=== PATIENT | female | born 1985 | race Caucasian/White ===

== ENCOUNTER 2018-08-17 10:12 | Inpatient (IN) ==
[2018-08-17] MEDS ORDERED: D5W 1,000 ML IV PRN (17:37)
[2018-08-17] MEDS ORDERED: NICODERM PATCH TD PRN (17:37)
[2018-08-17] MEDS ORDERED: TUBERSOL ID ONE (17:37)
[2018-08-17] MEDS ORDERED: PHENOBARBITAL IV PRN (17:37)
[2018-08-17] MEDS ORDERED: MAALOX PLUS LIQUID PO PRN (17:37)
[2018-08-17] MEDS ORDERED: SENOKOT PO PRN (17:37)
[2018-08-17] MEDS ORDERED: NICOTINE GUM BUCCAL PRN (17:37)
[2018-08-17] MEDS ORDERED: IMODIUM PO PRN ×2 (17:37)
[2018-08-17] MEDS ORDERED: ZOFRAN IM PRN (17:37)
[2018-08-17] MEDS ORDERED: SEROQUEL PO PRN (17:37)
[2018-08-17] MEDS ORDERED: DESYREL PO PRN (17:37)
[2018-08-17] MEDS ORDERED: DULCOLAX PR PRN (17:37)
[2018-08-17] MEDS ORDERED: MOTRIN PO PRN (17:37)
[2018-08-17] MEDS ORDERED: SALINE LOCK IV FLUID XX ONE (17:57)
[2018-08-17 18:23] LABS: HEMATOCRIT 36.8 % (37.0-47.0); HEMOGLOBIN 12.7 g/dL (12.0-16.0); MCH 34.6 PG (27-31); MCHC 34.5 g/dL (33-37); MCV 100.3 FL (81-99); MPV 8.5 FL (7.4-10.4); RBC 3.67 XMIL (4.2-5.4); WBC 6.85 X1000 (4.8-10.8)
[2018-08-17] MEDS ORDERED: M.V.I.-12 10 ML, FOLIC ACID 1 MG, MAGNESIUM SULFATE 1 GM, THIAMINE 100 MG in NS 1,000 ML IV ONE (18:30)
[2018-08-17 18:42] LABS: AGAP 16; ALBUMIN 3.6 g/dL (3.5-5.0); ALKALINE PHOSPHATASE 341 U/L (32-104); AMYLASE 124 U/L (20-200); BUN 7 mg/dL (8-22); CALCIUM 8.3 mg/dL (8.8-10.2); CHLORIDE 105 mmol/L (98-107); COSMO 295; CREATININE 0.6 mg/dL (0.5-0.9); ESTIMATED GFR > 60; GLUCOSE 141 mg/dL (70-104); GOT 496 U/L (10-30); GPT 130 U/L (10-36); LIPASE 47 U/L (13-60); POTASSIUM 3.5 mmol/L (3.5-5.1); SODIUM 148 mmol/L (136-145); TCO2 27 mmol/L (25-35); TOTAL PROTEIN 6.8 g/dL (6.3-8.3)
[2018-08-17] MEDS ORDERED: ATIVAN PO ONE (19:04)
[2018-08-17 19:16] LABS: UR AMPHETAMINES QUAL NONE DETECTED (NONE DETECT); UR BARBITUATES QUAL NONE DETECTED (NONE DETECT); UR BENZODIAZEPIN QUAL PRESUMPTIVE POSITIVE (NONE DETECT); UR CANNABINOIDS QUAL PRESUMPTIVE POSITIVE (NONE DETECT); UR COCAINE QUAL PRESUMPTIVE POSITIVE (NONE DETECT); UR METHADONE QUAL NONE DETECTED (NONE DETECT); UR METHAMPHETAMINE QUAL NONE DETECTED (NONE DETECT); UR OPIATES QUAL NONE DETECTED (NONE DETECT); UR OXYCODONE QUAL NONE DETECTED (NONE DETECT); UR PCP QUAL NONE DETECTED (NONE DETECT); UR PROPOXYPHENE QUAL NONE DETECTED (NONE DETECT); UR TCA QUAL NONE DETECTED (NONE DETECT)
[2018-08-17] MEDS: LIBRIUM PO SCH ×2 (19:28→23:59)
[2018-08-17 19:37] LABS: URINE SOURCE CLEAN CATCH
[2018-08-17 19:45] LABS: BILIRUBIN URINE NEGATIVE (NEGATIVE); BLOOD URINE NEGATIVE (NEGATIVE); CLARITY SL. CLOUDY (CLEAR); COLOR YELLOW; GLUCOSE URINE NEGATIVE (NEGATIVE); KETONE URINE NEGATIVE (NEGATIVE); LEUKOCYTES URINE TRACE (NEGATIVE); NITRITE URINE NEGATIVE (NEGATIVE); PROTEIN URINE TRACE mg/dL (NEGATIVE); SP GRAVITY URINE 1.005; UROBILINOGEN URINE NORMAL
[2018-08-17] MEDS: ZOFRAN IV PRN (19:52)
[2018-08-17 19:54] LABS: URINE BACTERIA 3+ /HFP; URINE CAST NONE SEEN /LPF; URINE CRYSTAL NONE SEEN /HPF; URINE EPITHELIAL CELLS <10 /HPF (<10); URINE RBC <10 /HPF (<10); URINE WBC <10 /HPF (<10); URINE YEAST NONE SEEN /HPF
[2018-08-17] MEDS: ROBAXIN PO PRN (21:00)
[2018-08-17] MEDS: ATARAX PO PRN (21:00)
[2018-08-17] MEDS ORDERED: BUSPAR PO SCH (21:00)
[2018-08-17] MEDS: BUSPAR PO SCH (21:00)
[2018-08-17] MEDS: SEROQUEL PO SCH (21:00)
[2018-08-18] MEDS: ZOFRAN IV PRN ×2 (04:42→21:36)
[2018-08-18] MEDS: ATARAX PO PRN ×3 (04:42→21:30)
[2018-08-18] MEDS: ROBAXIN PO PRN ×3 (04:43→21:30)
[2018-08-18] MEDS: PROTONIX PO SCH (06:00)
[2018-08-18] MEDS: LIBRIUM PO SCH ×3 (06:00→17:57)
--- NOTE | 2018-08-18 08:27 | HISTORY AND PHYSICAL ---
CHIEF COMPLAINT: Nausea and vomiting. HISTORY OF PRESENT ILLNESS: The patient is a 33-year-old female who presented to [facility] secondary to nausea, vomiting, abdominal pain, tremors, and myalgias. Notes that she has been drinking heavily and she has been trying to stop. However, her symptoms have been too severe and she has to start drinking to alleviate said symptoms. SOCIAL HISTORY: The patient is single. She is on disability. She lives at home in [place]. PAST MEDICAL HISTORY: Chronic pancreatitis, likely secondary to chronic alcoholism, history of cirrhosis, depression. She has borderline personality disorder. She has had a head injury years ago, likely secondary to syncope and problems with alcoholism. MEDICATIONS: Trazodone 100 mg at bedtime, azithromycin recently for a UTI, BuSpar 15 b.i.d., Seroquel 50, cefdinir 300. ALLERGIES: No known drug allergies. REVIEW OF SYSTEMS: CIWA score was 13 secondary to nausea, vomiting, tremors, anxiety, frequent agitation, paroxysmal sweating, cold chills, unable sit still, frequent fidgeting. Denies any hematemesis, hematochezia, melena, hemoptysis. Denies dysuria currently, although recently has had a UTI. These symptoms are improving. Denies headaches or blurry vision. Denies focalized numbness, tingling, or weakness in her extremities. SUBSTANCE ABUSE HISTORY: The patient had been to [place] several years ago. She started drinking at age 27. Currently drinks a pint a day, up to a fifth of vodka a day. She did use cocaine a few years ago but has not used since. FAMILY HISTORY: Noncontributory. PHYSICAL EXAMINATION: VITAL SIGNS: Reviewed and stable. GENERAL: She is awake, alert, oriented. She is in no current respiratory distress but is somewhat ill-appearing. She is fidgety, has notable tremors. HEENT: Normocephalic. NECK: Supple. CARDIOVASCULAR: Regular rate. CHEST: Clear and nonlabored. ABDOMEN: Soft, nondistended. EXTREMITIES: Moves all extremities. NEUROLOGIC: No focal changes. SKIN: Warm and dry. No rashes. ASSESSMENT: 1. Nausea, vomiting, and abdominal pain. 2. Myalgias. 3. Tremors. 4. Paresthesias. 5. Alcohol induced cirrhosis. PLAN: We will admit the patient to the hospital and place her on high-dose Librium. Continue counseling. Treat for alcohol withdrawal. We will monitor her liver functions and electrolytes, and we will follow. cc: Azeem Moreno MD
[2018-08-18] MEDS: FOLIC ACID PO SCH (09:22)
[2018-08-18] MEDS: BUSPAR PO SCH ×2 (09:22→21:31)
[2018-08-18] MEDS: SEROQUEL PO SCH ×2 (09:22→21:31)
[2018-08-18] MEDS: THERA M PLUS PO SCH (09:22)
[2018-08-18] MEDS: VITAMIN B-1 PO SCH (09:22)
[2018-08-18] MEDS: ZOFRAN ODT PO PRN (11:17)
[2018-08-18] MEDS: DESYREL PO SCH ×2 (21:00→21:30)
[2018-08-19] MEDS: LIBRIUM PO SCH ×4 (00:13→18:03)
[2018-08-19] MEDS: ZOFRAN IV PRN ×3 (03:32→21:19)
[2018-08-19] MEDS: ATARAX PO PRN ×2 (03:32→21:18)
[2018-08-19] MEDS: ROBAXIN PO PRN (03:32)
[2018-08-19] MEDS: BENTYL PO PRN ×2 (03:33→21:18)
[2018-08-19] MEDS: PROTONIX PO SCH (07:00)
[2018-08-19] MEDS: SEROQUEL PO SCH ×2 (08:33→21:18)
[2018-08-19] MEDS: VITAMIN B-1 PO SCH (08:33)
[2018-08-19] MEDS: THERA M PLUS PO SCH (08:33)
[2018-08-19] MEDS: FOLIC ACID PO SCH (08:33)
[2018-08-19] MEDS: BUSPAR PO SCH ×2 (08:34→21:55)
[2018-08-19] MEDS: TYLENOL PO PRN (13:54)
[2018-08-19] MEDS: DESYREL PO SCH (21:18)
--- NOTE | 2018-08-20 00:57 | PROGRESS NOTE ---
DATE: 08/18/2018 SUBJECTIVE: Patient seen and examined by myself on 08/18. States that she is feeling okay, did not sleep at all. States she is still having lots of withdrawal symptoms to include muscle aches, myalgias, tremors and agitation. PHYSICAL EXAMINATION: Vital Signs: Reviewed. Temperature 99 degrees, pulse 119, respiratory 20, BP 129/96. General: Patient is awake, alert. She is currently in no respiratory distress, but she is still somewhat ill appearing. HEENT: Normocephalic. Neck: Supple. Cardiovascular: Regular rate. No murmurs. Chest: Clear, nonlabored. Abdomen: Soft, nondistended. Extremities: Moves all extremities. Neurologic: No focal changes. Skin: Warm and dry. No rashes. ASSESSMENT: 1. Nausea and vomiting. 2. Abdominal pain. 3. Myalgias. 4. Paresthesias. 5. Paroxysmal sweating. 6. Pain. 7. Tremors. 8. Myalgias. 9. Alcohol abuse withdrawal and stabilization. 10. Polysubstance abuse with positive cocaine. 11. Cirrhosis. PLAN: We will continue patient in the hospital, continue high-dose Librium taper, continue counseling. Further orders as needed. cc: Azeem Moreno MD
[2018-08-20] MEDS: LIBRIUM PO SCH ×3 (01:15→15:12)
--- NOTE | 2018-08-20 01:19 | PROGRESS NOTE ---
DATE: 08/19/2018 SUBJECTIVE: Patient notes that she is feeling much better. Still having some muscle aches. Still having some tremors, but actually slept last night. Overall, her symptoms have improved. PHYSICAL EXAMINATION: Vital Signs: Reviewed. Temperature afebrile, 97.4, pulse 86, respiratory 18, BP 111/81. General: Patient is awake, alert. Currently she is in no respiratory distress. Very pleasant to talk with. HEENT: Normocephalic. Neck: Supple. CARDIOVASCULAR: Regular rate. Chest: Clear. Abdomen: Soft. Extremities: Moves all extremities. Neurologic: No changes. ASSESSMENT: 1. Nausea and vomiting. 2. Abdominal pain. 3. Myalgias. 4. Paresthesias. 5. Tremors. 6. Alcohol abuse. 7. Cirrhosis secondary to alcoholism. 8. Drug use with cocaine. DISPOSITION: Discussed with patient that she certainly needs to change her attitudes about alcohol as well as drug use. Discussed that she has cirrhosis and all alcohol will certainly continue to worsen her cirrhosis. Discussed that she needs to avoid persons, places, situations in which she has been using and abusing in the past. We will continue Librium taper. Further orders as needed. cc: Azeem Moreno MD
[2018-08-20] MEDS: PROTONIX PO SCH (06:16)
[2018-08-20 07:16] LABS: HEMOGLOBIN 10.7 g/dL (12.0-16.0); MCH 34.5 PG (27-31); MCHC 33.4 g/dL (33-37); MCV 103.2 FL (81-99); MPV 9.5 FL (7.4-10.4); RBC 3.1 XMIL (4.2-5.4); WBC 7.48 X1000 (4.8-10.8)
[2018-08-20 07:35] LABS: AGAP 10; ALBUMIN 3.1 g/dL (3.5-5.0); ALKALINE PHOSPHATASE 299 U/L (32-104); BUN 7 mg/dL (8-22); CALCIUM 8.8 mg/dL (8.8-10.2); CHLORIDE 104 mmol/L (98-107); COSMO 279; CREATININE 0.6 mg/dL (0.5-0.9); ESTIMATED GFR > 60; GLUCOSE 99 mg/dL (70-104); GOT 185 U/L (10-30); GPT 89 U/L (10-36); MAGNESIUM 1.8 mg/dL (1.5-2.7); POTASSIUM 3.5 mmol/L (3.5-5.1); SODIUM 141 mmol/L (136-145); TCO2 26 mmol/L (25-35); TOTAL PROTEIN 5.4 g/dL (6.3-8.3)
[2018-08-20] MEDS: BUSPAR PO SCH ×2 (08:32→20:34)
[2018-08-20] MEDS: FOLIC ACID PO SCH (08:32)
[2018-08-20] MEDS: VITAMIN B-1 PO SCH (08:33)
[2018-08-20] MEDS: THERA M PLUS PO SCH (08:33)
[2018-08-20] MEDS: SEROQUEL PO SCH ×2 (08:34→20:34)
[2018-08-20] MEDS: ZOFRAN IV PRN ×3 (08:34→20:34)
[2018-08-20 19:35] LABS: AMYLASE 84 U/L (20-200); LIPASE 16 U/L (13-60)
[2018-08-20] MEDS: ROBAXIN PO PRN (20:34)
[2018-08-20] MEDS: DESYREL PO SCH (20:34)
[2018-08-20] MEDS: TYLENOL PO PRN (20:34)
[2018-08-21 00:02] LABS: AMYLASE 79 U/L (20-200); LIPASE 27 U/L (13-60)
[2018-08-21] MEDS: TYLENOL PO PRN (01:10)
[2018-08-21] MEDS: PROTONIX PO SCH (06:14)
[2018-08-21] MEDS: ZOFRAN ODT PO PRN (06:24)
[2018-08-21 07:43] VITALS: BP 108/72
[2018-08-21] MEDS: VITAMIN B-1 PO SCH (08:17)
[2018-08-21] MEDS: ATARAX PO PRN (08:17)
[2018-08-21] MEDS: SEROQUEL PO SCH (08:17)
[2018-08-21] MEDS: BUSPAR PO SCH (08:18)
[2018-08-21] MEDS: FOLIC ACID PO SCH (08:19)
[2018-08-21] MEDS: THERA M PLUS PO SCH (08:19)
[2018-08-21] MEDS ORDERED: LIBRIUM PO SCH (13:00)
--- NOTE | 2018-08-21 14:45 | PROGRESS NOTE ---
DATE: 08/20/2018 SUBJECTIVE: The patient states she is feeling okay but she is having left upper quadrant abdominal pain thinks she may have pancreatitis as she has had it before although these symptoms slightly different. Interestingly she was able eat a full meal breakfast lunch and supper. Denies any diarrhea, fevers or chills. OBJECTIVE: Vital Signs: Reviewed, temperature 97.9 degrees, pulse 71, respiratory 18, BP 99/67. General: Patient is awake, alert, she is very pleasant talk with, she is in no current respiratory distress. HEENT: Normocephalic. Neck: Supple. CV: Regular rate . Chest: Clear nonlabored. Abdomen: Soft. Extremities: Moves all extremities. Neuro: No changes. ASSESSMENT: 1. Cirrhosis. Her AST, ALT both have dropped to 185 and 89 respectively from 496 and 130. Alk phos is also decreased. 2. Abnormal urine drug screen positive for cocaine. 3. Chronic alcoholism and continued stabilization. 4. Nausea, vomiting. 5. Abdominal pain . 6. History of recurrent pancreatitis. PLAN: We will continue patient in the hospital, check amylase, lipase although do not believe this is going to be a flare of pancreatitis. I think it is more so the amount of food that she has been eating over the past few days since she has not been drinking as much which is causing some inflammation and she certainly could have a chronic ulcer from her alcoholism. Will continue to wean her Librium, continue to follow, hopefully home over the next day or 2. cc: Azeem Moreno MD
--- NOTE | 2018-08-22 10:21 | DISCHARGE SUMMARY ---
ADMISSION DATE: 08/17/2018 DISCHARGE DATE: 08/21/2018 DISCHARGE DIAGNOSES: 1. Nausea and vomiting. 2. Abdominal pain. 3. Myalgias. 4. Paresthesias. 5. Tremors. 6. Paroxysmal sweating. 7. Alcohol abuse withdrawal and stabilization 8. Abnormal urine drug screen, positive for cocaine. 9. Recurrent pancreatitis. 10. Peptic ulcer disease. 11. Cirrhosis. AST, ALT and alkaline phosphatase, all 3, are improving as she is staying off alcohol. CONSULTATIONS: None. PROCEDURES: None. BRIEF HOSPITAL COURSE: Patient is a 33-year-old female, who presented to [facility] program secondary to nausea, vomiting, abdominal pain, tremors, myalgias , paresthesias, and chronic alcohol abuse. She was admitted to the hospital, placed on high-dose Librium taper. Thankfully over the next 2 days her liver functions, which were both markedly elevated, continued to improve slightly and, on discharge, she is improving. She did have some abdominal pain, felt this was likely secondary to peptic ulcer disease, and was placed on Prevacid as she was able to eat a full diet. Therefore, she will be discharged home. DISPOSITION: Patient will be discharged home. She will continue Librium taper for the next few days at home. Discussed with her that she needs outpatient counseling, as well as drug counseling. She needs to avoid all persons, places and situations in which she has been encouraged to drink in the past. Discussed that she has cirrhosis and alcohol that certainly can bring about an early demise. Discussed with her as well the importance of staying off all narcotics as her drug screen was positive for cocaine. I feel we will continue her medications and discharge her home. TIME SPENT: Greater than 30 minutes was spent in total care. cc: Azeem Moreno MD MTDD
== END 2018-08-21 11:23 | disposition home or self-care (01) | DRG 897 ==
LOC: P.DIRADM 15:11 → P.MEDSURG 15:56
PROVIDERS: ADMIT Family Medicine; ATTEND Family Medicine
CPT/HCPCS: 80053; 80104; 80301; 80305; 80307; 80320; 81001; 82055; 82150; 83690; 83735; 84703; 85027; 94761; A9270; G0431; G0434; G0477; G0480; G6040; J2405; J3411; J3475; J7030